=== PATIENT | male | born 1955 | race Caucasian/White ===

== ENCOUNTER 2024-01-20 11:48 | Day surgery (SDC) | payer MEDICARE, BC ==
[~2024-01-20] VITALS: Ht 170.2 cm; Wt 86.4 kg
[~2024-01-20 11:48] MED LIST: ASPIRIN EC81 MG PO; FOLIC ACID0.4 MG PO; IBLOOD GLUCOSE TEST STRIP 1 EA TEST VI PRN; LACTATED RINGER'S 1,000 ML IV SCH; LIDOCAINE HCL 1% 5 ML SDV INJ ONE; LISINOPRIL10 MG PO; METHOTREXATE2.5 MG PO; MIDAZOLAM HCL 5 MG/5 ML VIAL IV PRN; NORCO 5-325 TA1 EACH PO; TOPROL XL100 MG PO; TYLENOL EXTRA500 MG PO; fentaNYL citrate 100 MCG/2 ML VIAL IV PRN
[2024-01-20 12:28] VITALS: BP 144/89
[2024-01-20] MEDS ORDERED: fentaNYL citrate 100 MCG/2 ML VIAL ONE (15:00)
[2024-01-20] MEDS ORDERED: MIDAZOLAM HCL 5 MG/5 ML VIAL ONE (15:00)
[2024-01-20 16:07] VITALS: BP 144/106
--- NOTE | 2024-01-21 11:03 | OR ---
[facility] [address], [place] [address] Signed DATE OF OPERATION: 01/20/2024 SURGEON: Hero Gutierrez MD PREOPERATIVE DIAGNOSIS: Colon screening. POSTOPERATIVE DIAGNOSIS: Sigmoid diverticulosis. PROCEDURE: Total colonoscopy to cecum. ANESTHESIA: Intravenous sedation; fentanyl 100 mcg and Versed 5 mg. INDICATIONS: This 68-year-old white man is a patient of RIDDHI Sotelo. He underwent colonoscopy 10 years ago in 2012 which showed no abnormalities. He has no current symptoms of bleeding, diarrhea, or constipation. He has no family history of colon cancer. He is here for colon screening. He understands the risk of bleeding, infection, and perforation. FINDINGS: The prep was excellent. Complete full intubation of the cecum was accomplished. He had no evidence of polyps, only scattered diverticula of the sigmoid colon. DESCRIPTION OF PROCEDURE: The patient was brought to the endoscopy suite and placed in lateral decubitus position and given intravenous sedation to the point of slurred speech and nystagmus with full cardiopulmonary monitoring. Digital rectal examination was normal including normal prostate. An Olympus video colonoscope was passed into the rectum and manipulated throughout the colon showing several diverticula of the sigmoid and left colon. The scope was ultimately advanced to the cecum. Full intubation of the cecum was accomplished. The ileocecal valve and appendiceal orifice were normal. The scope was withdrawn from that point. Examination throughout showed no sign of polyps or colitis, but did confirm diverticula of the left and sigmoid colon. Retroflexed view of the rectum was normal. Scope was removed. The patient was taken to the recovery room in good condition. Electronically Signed By: HERO GUTIERREZ MD 01/21/24 1103 PATIENT NAME: BERTHA VITALEKaley Herzog OPERATIVE REPORT DATE OF : 53 REPORT #: [id number] PHYSICIAN: HERO GUTIERREZ MD PCP: EVER MAHARAJ PA-C REPORT IS CONFIDENTIAL AND NOT TO BE RELEASED WITHOUT AUTHORIZATION [facility] [address] [place], [place] [address] Signed CONCLUDING DIAGNOSIS: Normal colon to cecum other than diverticula of sigmoid and left colon. PLAN: Recommend repeat colonoscopy in 10 years or sooner if symptoms should occur. Additionally, recommend high-fiber diet. He will return to the ongoing care of RIDDHI Sotelo. MD DAVONTE Boyd/MODL /[id number] cc: RIDDHI Sotelo Copies: ~ Electronically Signed By: HERO GUTIERREZ MD 01/21/24 1103 PATIENT NAME: SIMON VITALE OPERATIVE REPORT DATE OF : 53 REPORT #: [id number] PHYSICIAN: HERO GUTIERREZ MD PCP: EVER MAHARAJ PA-C REPORT IS CONFIDENTIAL AND NOT TO BE RELEASED WITHOUT AUTHORIZATION
== END 2024-01-20 16:14 | disposition home or self-care (01) ==
LOC: OPS 11:48 → DS 11:48 → OPS 13:00 → DS 13:00 → OPS 16:14
PROVIDERS: ATTEND Surgery
PROC: 0DJD8ZZ Inspection of Lower Intestinal Tract, Via Natural or Artificial Opening Endoscopic (ICD-10-PCS; principal; 2024-01-20 13:00)
DX: Z12.11 Encounter for screening for malignant neoplasm of colon (principal); I10 Essential (primary) hypertension; L40.9 Psoriasis, unspecified; Z85.828 Personal history of other malignant neoplasm of skin; K57.30 Diverticulosis of large intestine without perforation or abscess without bleeding
CPT/HCPCS: 99153; G0500; J2250; J3010; J7121